=== PATIENT | male | born 1990 ===

== ENCOUNTER 2018-06-05 15:43 | Emergency (ER) | payer OTHER ==
[2018-06-05 16:37] VITALS: RESP 18; O2SAT 97
--- NOTE | 2018-06-05 17:48 | C.PDOC ---
History Of Present Illness 28 y/o male comes to ED after a piece of wood fell on the top of his head and left hand at work today. 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 Patient denies LOC and reports he was able to walk afterwards and remembers everything. Patient took an Uber here. Upon arrival, patient complains of pain at base of occiput and abrasions on left distal radial forearm. He denies nausea, vomiting, headache, dizziness, hearing changes, ear pain, epistaxis, nose discharge, or other symptoms. Patient also reports of pain on both sides of jaw when he opens it fully. - HPI Chief Complaint (Nursing): Trauma History Per: Patient History/Exam Limitations: no limitations Onset/Duration Of Symptoms: Hrs Past Medical History Reviewed: Historical Data, Nursing Documentation, Vital Signs Vital Signs: Last Vital Signs Temp 97.6 F 06/05/18 16:00 Pulse 68 06/05/18 16:00 Resp 18 06/05/18 16:00 BP 138/90 06/05/18 16:00 Pulse Ox 97 06/05/18 16:00 Family History: States: No Known Family Hx - Social History Hx Alcohol Use: No Hx Substance Use: No - Immunization History Hx Tetanus Toxoid Vaccination: No Hx Influenza Vaccination: No Hx Pneumococcal Vaccination: No Review Of Systems Constitutional: Negative for: Fever, Chills ENT: Negative for: Ear Pain, Nose Discharge Gastrointestinal: Negative for: Nausea, Vomiting Genitourinary: Negative for: Dysuria Musculoskeletal: Positive for: Other (Pain at occiput and left forearm). Negative for: Neck Pain Skin: Positive for: Other (Abrasion on L hand) Neurological: Negative for: Weakness, Numbness, Headache, Dizziness Physical Exam - Physical Exam Appears: Non-toxic, No Acute Distress, Other (Comfortable) Skin: Warm, Dry Head: Tenderness (at base of occiput bilaterally, no erythema, edema, or lesions), No Abrasion Eye(s): bilateral: Normal Inspection Oral Mucosa: Moist Neck: Normal ROM, Supple Chest: Symmetrical Cardiovascular: Rhythm Regular, No Murmur Respiratory: Normal Breath Sounds, No Accessory Muscle Use, No Rales, No Rhonchi, No Wheezing Back: No CVA Tenderness, No Paraspinal Tenderness Extremity: Tenderness (from distal radial forearm to 1st and 2nd digits), Other (Limited ROM of digits secondary to pain; abrasion to the cuticle of L thumb, no active bleeding) Extremity: Bilateral: Normal Color And Temperature Neurological/Psych: Oriented x3, Normal Speech, Normal Motor, Normal Sensation ED Course And Treatment O2 Sat by Pulse Oximetry: 97 (RA) Pulse Ox Interpretation: Normal - Other Rad Hand XR X-Ray: Read By Radiologist Interpretation: FINDINGS: BONES: No acute displaced fracture. JOINTS: No dislocation. SOFT TISSUES: Unremarkable. No evidence of radiopaque foreign body. OTHER FINDINGS: None. IMPRESSION: No acute displaced fracture, dislocation, or significant joint effusion identified. If symptoms persist, or if there is continued clinical concern, x-ray follow-up in 7-10 days should be considered. Medical Decision Making Medical Decision Making: Plan: --Ibuprofen PO --Left Hand XR this patient does not meet [place] head criteria Disposition Counseled Patient/Family Regarding: Studies Performed, Diagnosis, Need For Followup, Rx Given - Disposition Disposition: HOME/ ROUTINE Disposition Time: 18:47 Condition: STABLE Prescriptions: RX: Ibuprofen [Motrin Tab] 800 mg PO TID PRN #21 tab PRN Reason: Pain, Moderate (4-7) Instructions: Contusion (DC), Minor Head Injury (DC) Forms: General Discharge Instructions, [facility] (Romanian), Work Excuse - Clinical Impression Clinical Impression: Contusion of hand, left, Minor head injury without loss of consciousness - PA / BRAND DIRECTOR / Resident Statement MD/DO has reviewed & agrees with the documentation as recorded. - Scribe Statement The provider has reviewed the documentation as recorded by the [place] Tracy All medical record entries made by the [place] were at my direction and personally dictated by me. I have reviewed the chart and agree that the record accurately reflects my personal performance of the history, physical exam, medical decision making, and the department course for this patient. I have also personally directed, reviewed, and agree with the discharge instructions and disposition.
--- NOTE | 2018-06-05 18:03 | RAD ---
PROCEDURE: Left Hand Radiographs. HISTORY: hand pain COMPARISON: None available. FINDINGS: BONES: No acute displaced fracture. JOINTS: No dislocation. SOFT TISSUES: Unremarkable. No evidence of radiopaque foreign body. OTHER FINDINGS: None. IMPRESSION: No acute displaced fracture, dislocation, or significant joint effusion identified. If symptoms persist, or if there is continued clinical concern, x-ray follow-up in 7-10 days should be considered.
[2018-06-05 18:57] VITALS: BP 127/83; PULSE 81; TEMP 98.1
== END 2018-06-05 18:56 | disposition home or self-care (01) ==
LOC: C.ER 15:43
DX: S09.90XA Unspecified injury of head, initial encounter (principal); S60.222A Contusion of left hand, initial encounter; W20.8XXA Other cause of strike by thrown, projected or falling object, initial encounter; Y93.H3 Activity, building and construction; Y92.89 Other specified places as the place of occurrence of the external cause; Y99.0 Civilian activity done for income or pay